=== PATIENT | male | born 1940 ===

== ENCOUNTER 2016-10-29 08:22 | Observation (INO) | payer OTHER ==
[2016-10-29] MEDS ORDERED: NS 2,000 ML ONE (10:00)
[2016-10-29] MEDS ORDERED: HEPARIN ONE (10:00)
[2016-10-29 11:32] LABS: HEMATOCRIT 24.8 % (42.0-52.0); HEMOGLOBIN 7.4 g/dL (14.0-18.0); MCH 22.2 PG (27-31); MCHC 29.8 g/dL (33-37); MCV 74.3 FL (81-99); MPV 10.8 FL (7.4-10.4); RBC 3.34 XMIL (4.7-6.1)
[2016-10-29 11:58] LABS: AGAP 18; ALBUMIN 2.1 g/dL (3.5-5.0); BUN 81 mg/dL (8-22); CALCIUM 8.6 mg/dL (8.8-10.2); CHLORIDE 91 mmol/L (98-107); COSMO 302; POTASSIUM 4.7 mmol/L (3.5-5.1); SODIUM 133 mmol/L (136-145); TCO2 24 mmol/L (25-35)
[2016-10-29 14:42] VITALS: BP 199/87
--- NOTE | 2016-10-29 17:18 | PROGRESS NOTE ---
DATE: 10/29/2016 SUBJECTIVE: Patient presents to outpatient for blood transfusion. He has no complaints. OBJECTIVE: Vital signs: Afebrile, pulse 72, respiratory 20, blood pressure 146/67. PHYSICAL EXAMINATION: General: Elderly gentleman resting in a chair, in no acute distress. HEENT: Normocephalic, atraumatic. Oral mucosa is dry. Neck: Supple. No JVD. Cardiovascular: Regular rate and rhythm. Pulmonary: He has decreased breath sounds to the bases. He is clear otherwise. Abdomen: Soft, positive bowel sounds. Genitourinary: Not inspected. Extremities: No clubbing or cyanosis. Integumentary: Skin is warm and dry. No rash or lesion. LAB DATA: WBC 16.6, hemoglobin 7.4, hematocrit 24.8, platelet count of 407,000. Sodium 133, potassium 4.7, CO2 24, creatinine 5.8, calcium 8.6, phosphorus 6.5 and albumin 2.1. ASSESSMENT AND PLAN: 1. End-stage renal disease management. Today is his routine dialysis day. We will dialyze him on a 2 K bath/UF to dry weight/3.5 hour treatment. 2. Anemia. He will be transfused 2 units packed red blood cells during dialysis. Dictated by PARI Duncan for Johnson Holt MD
== END 2016-10-29 14:42 ==
LOC: DIRADM 08:22
PROVIDERS: ADMIT Internal Medicine Nephrology; ATTEND Internal Medicine Nephrology
DX: N18.6 End stage renal disease (principal); D63.1 Anemia in chronic kidney disease; Z99.2 Dependence on renal dialysis
CPT/HCPCS: 80069; 85027; 86850; 86900; 86901; 86920; J1644; J7030; P9016